=== PATIENT | female | born 1975 | race Two or more races ===

== ENCOUNTER 2024-09-26 22:17 | Emergency (ER) | payer MEDICAID, SELFPAY ==
[2024-09-26 23:13] VITALS: BP 148/75; PULSE 101; RESP 20; TEMP 36.8; O2SAT 95
--- NOTE | 2024-09-26 23:23 | XR_ITS ---
Examination: Abdomen sonogram, Limited Date and time of exam: September 2024 11:52 PM Indications: Right upper abdominal pain today Technique: Real-time mack scale transabdominal sonographic images of the upper abdomen obtained. Findings: Normal gallbladder. No common duct 3 cm. Pancreatic head 2.8 cm. Liver 16.5 cm Fatty infiltration Normal hepatopedal portal venous flow Patent IVC Impression: Normal gallbladder Fatty liver
--- NOTE | 2024-09-26 23:23 | PD.EDRME ---
Rapid Medical Screening Exam RME Arrival date/time: 09/26/24 22:17 49F with no significant PMH presents to ED with RUQ pain and N/V. Chief Complaint: Abdominal Pain Vital signs: Vital Signs Temperature 98.3 F 09/26/24 23:13 Pulse Rate 101 H 09/26/24 23:13 Respiratory Rate 20 09/26/24 23:13 Blood Pressure 148/75 H 09/26/24 23:13 Pulse Oximetry (%) 95 09/26/24 23:13 Oxygen Delivery Method Room Air 09/26/24 23:13
[2024-09-26] MEDS: HYDROcodone/APAP 5/325 TABLET 1 TAB PO (23:54)
[2024-09-26] MEDS: ONDANSETRON ODT 4 MG TABRAP PO (23:54)
[2024-09-26 23:59] LABS: Collection Type, Urine Clean Catch
[2024-09-27 00:10] LABS: Basophils % (Auto) 0 % (0-2.5); Eosinophils # (Auto) 0.1 Thou/mm3 (0.0-0.5); Eosinophils % (Auto) 1 % (0-10); Hematocrit 44.2 % (36.0-46.0); Hemoglobin 14.5 g/dL (12.0-16.0); Immature Granulocytes % (Auto) 0 % (0-0); Immature Granulocytes Auto 0.03 Thou/mm3 (0.00-0.00); Lymphocytes % (Auto) 17 % (10-50); Mean Corpuscular HGB Conc 32.8 g/dl (31.0-37.0); Mean Corpuscular Volume 91 fL (80-100); Monocytes # (Auto) 0.7 Thou/mm3 (0.0-0.8); Monocytes % (Auto) 6 % (0-12); Neutrophils % (Auto) 76 % (37-80); Nucleated Red Blood Cell % 0 /100 WBC (0); Platelet Count 192 Thou/mm3 (140-440); RDW Standard Deviation 41.9 fL (36.4-46.3); Red Blood Count 4.84 Miln/mm3 (4.00-5.20); White Blood Count 11.9 Thou/mm3 (3.6-11.0)
[2024-09-27 00:20] LABS: Amphetamine/Methamp Scrn,U Negative (Negative); Barbiturate Screen,Urine Negative (Negative); Benzodiazepines Screen,Urine Negative (Negative); Benzoylecgonine Screen, Ur Negative (Negative); Fentanyl Screen,Urine Negative (Negative); Opiate Screen,Urine Negative (Negative); THC Screen,Urine Negative (Negative)
[2024-09-27 00:21] LABS: Alanine Aminotransferase 52 U/L (10-49); Albumin, Serum 4.6 gm/dL (3.5-5.0); Albumin/Globulin Ratio 1.2 (1.2-2.2); Alkaline Phosphatase 85 U/L (46-116); Anion Gap 9 (7-16); Aspartate Amino Transferase 27 U/L (0-34); BUN/Creatinine Ratio 10 Ratio (12-20); Bilirubin,Total 0.7 mg/dL (0.3-1.2); Blood Urea Nitrogen 10 mg/dL (9-23); Calcium 10.2 mg/dL (8.3-10.6); Calcium (Corrected) 10.2 mg/dL (8.5-10.1); Carbon Dioxide 29.5 mMol/L (20.0-31.0); Chloride 102 mMol/L (98-107); Globulin 3.8 gm/dL (2.3-3.5); Glucose 308 mg/dL (74-106); Lipase 47 U/L (12-53); Osmolality,Calculated 290 (275-295); Potassium 4.4 mMol/L (3.4-5.1); Sodium 140 mMol/L (136-145); Total Protein 8.4 gm/dL (5.7-8.2); eGFR > 60 See Note
[2024-09-27 00:30] LABS: Bilirubin,Urine Negative (Negative); Blood,Urine Negative (Negative); Clarity,Urine Clear (Clear/Hazy); Color,Urine Colorless (Lt Yel-Yel); Glucose, Urine 4+ (Negative); Ketones,Urine 1+ (Negative); Leukocyte Esterase,Urine Negative (Negative); Nitrite,Urine Negative (Negative); Protein,Urine Negative (Neg - Trace); RBC,Urine 1 /hpf (0-3); Specific Gravity,Urine 1.012 (1.001-1.035); Squamous Epithelial Cell,Urine 1 /hpf (0-5); Urobilinogen,Urine Negative mg/dL (0.0-1.0); WBC,Urine 4 /hpf (0-5)
[2024-09-27 00:32] LABS: HCG Qualitative,Urine Negative
[2024-09-27 04:00] VITALS: BP 108/66; PULSE 61; RESP 19; TEMP 36.6; O2SAT 96
[2024-09-27 06:19] VITALS: BP 126/63; PULSE 84; RESP 19; TEMP 37.1; O2SAT 99
--- NOTE | 2024-09-27 06:25 | XR_ITS ---
Examination: CT abdomen and pelvis without contrast. Coronal 3-D reconstructions. Sagittal 2-D reconstructions. Date and time of exam:September 27, 2024, 0757 hrs. Indications: Right lower abdominal pain with nausea today. CTDI: vol (mGy): 11.8 DLP: (mGycm): 652 Technique: Axial images of the abdomen have been obtained, 3 mm slice thickness Intravenous contrast material has not been administered. Low dose protocols were performed. One or more of the following dose reduction techniques were used; automated exposure control, adjustment of the mA and/or KV according to patient size, use of iterative reconstruction technique. Findings: Fatty liver Spleen is not enlarged No gallstones. No pancreatic mass. No renal or ureteral calculi. Aorta normal size. 10 mm fat-containing umbilical hernia Normal appendix coronal image 77 No bowel obstruction. No pelvic mass. Contracted urinary bladder. Impression: Normal appendix
--- NOTE | 2024-09-27 06:26 | EDNOTE_ITS ---
ED General RME/HPI General Chief complaint: Abdominal Pain Stated complaint: RIGHT LOWER ABD PAIN TODAY Time Seen by Provider: 09/27/24 06:21 Arrival date/time: 09/26/24 22:17 CC: Right lower quadrant right lateral quadrant abdominal pain with nausea vomiting onset yesterday afternoon. No prior history of similar events denies fever chills shortness of breath difficulty breathing diarrhea painful urination. At the time of the exam at 6:26 AM the patient continues to have a abdominal pain patient was given medication in the waiting room which resolved the nausea and vomiting as well as the pain but the pain is now beginning to return. RME / HPI RME / HPI narrative: 09/26/24 22:17 49F with no significant PMH presents to ED with RUQ pain and N/V. Related Data Previous Rx's ?Medication ?Instructions ?Recorded ibuprofen 600 mg tablet 600 mg PO Q6HR PRN PAIN #40 tabs 03/06/15 ibuprofen 600 mg tablet 600 mg PO TID PRN pain #30 t abs 03/04/23 meloxicam 7.5 mg tablet 7.5 mg PO QDAY #10 tabs 09/15 10/09 ondansetron 4 mg disintegrating 4 mg PO Q8H #10 tabs 0 09/27/24 tablet Allergies Allergy/AdvReac Type Severity Reaction Status Date / Time No Known Allergies Allergy Verified 09/26/24 22:18 Review of Systems Review of Systems Narrative Review of Systems: GEN: No fever, no chills, no weight loss EYES: No discharge, no visual changes, no pain HEENT: No ear pain, no congestion, no sore throat PULM: No shortness of breath, no cough, no congestion CV: No chest pain, no dyspnea on exertion, no palpitations GI: No nausea, no vomiting, no diarrhea, +pain, no constipation : No frequency, no urgency, no dysuria MUSC/SKEL: No joint pain, no back pain SKIN: No rash PSYCH: No hallucinations, no depression HEME/LYMPH: No easy bleeding or bruising tendencies NEURO: No weakness, no headache Past Medical History Social History SMOKING STATUS: Never smoker ED Exam Narrative Physical exam: [General: Obese not in mild discomfort but not in any acute distress Head normocephalic HEENT: Within acceptable limits Neck is supple nontender Chest equal chest rise nontender to palpation Respiratory: Clear to auscultation no wheezes crackles or rubs CV: Rate rhythm is regular no murmurs rubs or clicks Abdomen is distended secondary to body habitus soft, reflexive guarding with palpation of the pannus in the right lower quadrant no McBurney's point tenderness. Also pain in the right lateral abdomen. No flank pain. positive bowel sounds all 4 quadrants Back: No CVA tenderness no spinous process tenderness from cervical spine thoracic and lumbar spine Skin: Intact no petechiae rash induration ulceration or crepitus Extremities: Moving all extremity against resistance cap refill less than 2 seconds neurosensory intact Neuro: Awake alert oriented x3 Glascow coma 15 no focal deficits] Course Quality Measures none Orders Category Date Time Status CT abdomen pelvis wo con Stat Exams 09/27/24 06:25 Completed US gall bladder Stat Exams 09/26/24 23:23 Completed CBC Stat Lab 09/26/24 23:54 Completed CMP [Comprehensive Metabolic Panel] Stat Lab 09/26/24 23:54 Completed Drug Screen,Urine Stat Lab 09/26/24 23:25 Completed HCG Qualitative,Urine Stat Lab 09/26/24 23:25 Completed Lipase Stat Lab 09/26/24 23:54 Completed UA [Urinalysis] Stat Lab 09/26/24 23:25 Completed HYDROcodone*/APAP 5/325 [[place] 5/325] Med 09/26/24 23:24 Discontinued 1 tab PO X1 ONE Ondansetron Odt [Zofran Odt] Med 09/26/24 23:24 Discontinued 4 mg PO X1 ONE Ondansetron Odt [Zofran Odt] Med 09/27/24 08:19 Discontinued 4 mg PO X1 ONE oxyCODONE/APAP 5/325 [Percocet 5/325] Med 09/27/24 06:25 Discontinued 1 tab PO X1 ONE Vital Signs Vital signs: Vital Signs Temperature 98.3 F 09/26/24 23:13 Pulse Rate 101 H 09/26/24 23:13 Respiratory Rate 20 09/26/24 23:13 Blood Pressure 148/75 H 09/26/24 23:13 Pulse Oximetry (%) 95 09/26/24 23:13 Oxygen Delivery Method Room Air 09/26/24 23:13 [facility] Patient data External records reviewed:: [facility] previous records Clinical information provided by:: patient Social determinants that could affect healthcare access:: none Patient has the following chronic illnesses:: Morbid obesity How is presenting disease/condition affected by chronic disease/condition?: u neffected by Evaluation data The following diagnostics were reviewed and interpreted by me:: lab results and radiology exam(s) Lab and/or radiology exams considered but not ordered:: CBC shows no acute leukocytosis anemia thrombocytopenia CMP shows no acute electrolyte imbalances renal impairment transaminitis or T. bili elevation Urine is negative for UTI Talk screen is negative Gallbladder ultrasound shows no acute finding requires emergent or immediate intervention. The CT of the abdomen done at 830 this morning is negative for any acute finding patient be discharged home Interpretation Summary: At the time of the exam the patient has reflexive guarding him not sure if this is an appendectomy or not or diverticulitis patient will get a CT without con. Patient is not in any acute distress but clearly is uncomfortable. Medications Medications considered but not ordered:: None Medication administrations:: Medication Administration History Discontinued Medications Hydrocodone Bitart/Acetaminophen (Hydrocodone/Apap 5/325 Tablet) 1 tab PO X1 ONE Stop: 09/26/24 23:25 Last Admin: 09/26/24 23:54 Dose: 1 tab Documented By: AMERICA Ondansetron HCl (Ondansetron Odt 4 Mg Tabrap) 4 mg PO X1 ONE; Protocol Stop: 09/26/24 23:25 Last Admin: 09/26/24 23:54 Dose: 4 mg Documented By: AMERICA Ondansetron HCl (Ondansetron Odt 4 Mg Tabrap) 4 mg PO X1 ONE; Protocol Stop: 09/27/24 08:20 Last Admin: 09/27/24 08:26 Dose: 4 mg Documented By: KENDRA Oxycodone/Acetaminophen (Oxycodone/Apap 5/325 Tablet) 1 tab PO X1 ONE Stop: 09/27/24 06:26 Last Admin: 09/27/24 07:22 Dose: 1 tab Documented By: KENDRA None Consultations Consultation(s) initiated? (list below): No Diagnosis Differential Diagnosis ED Complaint MDM: Appendicitis diverticulitis diverticulosis Most likely diagnosis given after review of the tests above:: Abdominal pain nausea vomiting Admission Indicated Admission indicated?: not indicated Explain why admission is indicated or not indicated:: Stable for outpatient follow-up Admission Request Was there a request for admission?: No Disposition Plan Disposition Plan: Discharge Discharge Attestation Discharge Attestation: The patient and all family members were given an opportunity to ask questions and understood the discharge instructions. Discharge instructions specifically effects, indications for sooner follow up or return to the emergency department, and the expected course of current diagnosis. Patient condition: Stable Medical Decision Making Differential Diagnosis Differential Diagnosis: Appendicitis diverticulitis diverticulosis Lab Data 09/26/24 23:54 09/26/24 23:54 Labs: Lab Results 09/26/24 09/26/24 Range/Units 23:25 23:54 WBC 11.9 H (3.6-11.0) Thou/mm3 RBC 4.84 (4.00-5.20) Miln/mm3 Hgb 14.5 (12.0-16.0) g/dL Hct 44.2 (36.0-46.0) % MCV 91 (80-100) fL MCH 30.0 (25.0-35.0) pg MCHC 32.8 (31.0-37.0) g/dl RDW Std Deviation 41.9 (36.4-46.3) fL Plt Count 192 (140-440) Thou/mm3 Neut % (Auto) 76 (37-80) % Lymph % (Auto) 17 (10-50) % [place] % (Auto) 6 (0-12) % Eos % (Auto) 1 (0-10) % Baso % (Auto) 0 (0-2.5) % Neut # (Auto) 9.0 H (1.8-7.7) Thou/mm3 Lymph # (Auto) 2.0 (1.0-4.8) Thou/mm3 [place] # (Auto) 0.7 (0.0-0.8) Thou/mm3 Eos # (Auto) 0.1 (0.0-0.5) Thou/mm3 Baso # (Auto) 0.0 (0.0-0.2) Thou/mm3 Immature Gran # (Auto) 0.03 H (0.00-0.00) Thou/mm3 Absolute Nucleated RBC 0.00 (0.00-0.00) Thou/mm3 Immature Gran % 0 (0-0) % Nucleated RBC % 0 (0) /100 WBC Sodium 140 (136-145) mMol/L Potassium 4.4 (3.4-5.1) mMol/L Chloride 102 (98-107) mMol/L Carbon Dioxide 29.5 (20.0-31.0) mMol/L Anion Gap 9 (7-16) BUN 10 (9-23) mg/dL Creatinine 1.0 (0.6-1.3) mg/dL Estim Creat Clear Calc Not Performed. eGFR > 60 (60 - ) See Note BUN/Creatinine Ratio 10 L (12-20) Ratio Glucose 308 H (74-106) mg/dL Calculated Osmolality 290 (275-295) Calcium 10.2 (8.3-10.6) mg/dL Corrected Calcium 10.2 H (8.5-10.1) mg/dL Total Bilirubin 0.7 (0.3-1.2) mg/dL AST 27 (0-34) U/L ALT 52 H (10-49) U/L Alkaline Phosphatase 85 (46-116) U/L Total Protein 8.4 H (5.7-8.2) gm/dL Albumin 4.6 (3.5-5.0) gm/dL Globulin 3.8 H (2.3-3.5) gm/dL Albumin/Globulin Ratio 1.2 (1.2-2.2) Lipase 47 (12-53) U/L Ur Collection Type Clean Catch Urine Color Colorless A (Lt Yel-Yel) Urine Clarity Clear (Clear/Hazy) Urine pH 7.0 (5.0-7.0) Ur Specific [place] 1.012 (1.001-1.035) Urine Protein Negative (Neg - Trace) Urine Glucose (UA) 4+ A (Negative) Urine Ketones 1+ A (Negative) Urine Blood Negative (Negative) Urine Nitrite Negative (Negative) Urine Bilirubin Negative (Negative) Urine Urobilinogen (Auto) Negative (0.0-1.0) mg/dL Ur Leukocyte Esterase Negative (Negative) Urine RBC 1 (0-3) /hpf Urine WBC 4 (0-5) /hpf Ur Squamous Epith Cells 1 (0-5) /hpf Urine Bacteria None (None) Urine HCG, Qual Negative Urine Opiates Screen Negative (Negative) Urine Fentanyl Screen Negative (Negative) Ur Barbiturates Screen Negative (Negative) U Amphetamin/Meth Scrn Negative (Negative) U Benzodiazepines Scrn Negative (Negative) U Cocaine Metab Screen Negative (Negative) U Marijuana (THC) Screen Negative (Negative) Discharge Plan Plan Patient Disposition: HOME (Self Care) Patient condition on transfer: Stable Prescriptions/Referrals Prescriptions/Med Rec: New ondansetron 4 mg tablet,disintegrating 4 mg PO Q8H Qty: 10 0RF meloxicam 7.5 mg tablet 7.5 mg PO QDAY Qty: 10 0RF No Action ibuprofen 600 MG tablet 600 mg PO Q6HR PRN (Reason: PAIN) Qty: 40 0RF ibuprofen 600 mg tablet 600 mg PO TID PRN (Reason: pain) Qty: 30 0RF Referrals: Maulik Reyes MD [Physician] - In 1 week No Primary/Family,Physician [Primary Care Provider] - In 1 week Problem List Clinical Impression: Abdominal pain, Nausea & vomiting Patient/Caregiver Discharge Instructions Print Language: Georgian Stand Alone Forms: Duyen Award Info., Patient Portal Info Letter
[2024-09-27] MEDS: oxyCODONE/APAP 5/325 TABLET 1 TAB PO (07:22)
[2024-09-27] MEDS: ONDANSETRON ODT 4 MG TABRAP PO (08:26)
[2024-09-27 09:41] VITALS: PULSE 88; RESP 16; O2SAT 99
== END 2024-09-27 09:42 | disposition home or self-care (01) ==
PROVIDERS: Physician Assistant; Emergency Provider Emergency Medicine
DX: R10.31 Right lower quadrant pain (principal); R11.2 Nausea with vomiting, unspecified
CPT/HCPCS: 36415; 74176; 76705; 80053; 80307; 81001; 81025; 83690; 85025; 99284; Q0162; A9270